=== PATIENT | female | born 1990 | race Caucasian/White ===

== ENCOUNTER 2016-09-23 16:26 | Emergency (ER) | payer OTHER, BC ==
[~2016-09-23] VITALS: Ht 172.7 cm; Wt 139.5 kg
[~2016-09-23 16:26] MED LIST: GLUCOPHAGE500 MG/TAB PO; LOESTRIN 1/20 21DAY
[2016-09-23 16:32] VITALS: TEMP 98.3
[2016-09-23] MEDS ORDERED: FLEXERIL 1010 MG/TAB PO (19:02)
[2016-09-23 19:10] VITALS: BP 138/79; PULSE 86
== END 2016-09-23 19:11 | disposition home or self-care (01) ==
LOC: COL.ER 16:26
DX: M62.830 Muscle spasm of back (principal); V43.52XA Car driver injured in collision with other type car in traffic accident, initial encounter; Y92.410 Unspecified street and highway as the place of occurrence of the external cause; M41.9 Scoliosis, unspecified
CPT/HCPCS: J1885; J2360

== ENCOUNTER 2019-05-02 08:32 | Emergency (ER) | payer BC ==
[~2019-05-02] VITALS: Ht 177.8 cm; Wt 118.2 kg
[~2019-05-02 08:32] MED LIST changes: +BLISOVI 24 FE1 EACH PO; +FLEXERIL 1010 MG/TAB PO; +NORCO 325 MG-51 TAB PO
[2019-05-02 08:39] VITALS: TEMP 97.9
[2019-05-02] MEDS ORDERED: CRANBERRY FRUI425 MG PO (08:51)
[2019-05-02] MEDS ORDERED: GINGER500 MG PO (08:51)
[2019-05-02 09:28] LABS: BASO % 0.3 % (0.0-2.0); EOS # 0.2 (0.0-0.7); EOS % 2.8 % (0-4.0); GRAN # 4.7 (1.4-6.5); GRAN % 65.1 % (42.2-75.2); HEMATOCRIT 40.7 % (37.0-47.0); HEMOGLOBIN 14.1 g/dl (12.5-16.0); LYMPH # 1.9 (1.2-3.4); LYMPH % 25.6 % (20.0-51.0); MEAN CELL VOLUME 94 fl (80.0-100.0); MEAN CORPUSCULAR HEMOGLOBIN 33 pg (27.0-31.0); MEAN CORPUSCULAR HGB CONC 35 g/dl (33.0-37.0); MEAN PLATELET VOLUME 9.4 fl (7.4-10.4); MONO # 0.4 (0.1-0.6); MONO % 5.9 % (1.7-9.3); PLATELET COUNT 185 K/mm3 (130-400); RED BLOOD COUNT 4.34 M/mm3 (4.10-5.30); REDCELL DISTRIBUTION WIDTH-CV 11.9 % (11.5-14.5)
[2019-05-02 09:39] LABS: ALBUMIN 3.9 gm/dL (3.5-5.0); BILIRUBIN,TOTAL 0.5 mg/dL (0.0-1.0); CALCIUM 8.8 mg/dL (8.4-10.2); CREATININE, serum 0.58 (0.52-1.25); POTASSIUM 4.1 mmol/L (3.4-5.0); TOTAL PROTEIN 6.6 gm/dL (6.4-8.2)
[2019-05-02] MEDS ORDERED: PREDNISONE20 MG PO (10:50)
[2019-05-02] MEDS ORDERED: PROAIR HFA0.09 MG/AC IH (11:34)
[2019-05-02 11:45] VITALS: BP 110/60; PULSE 87
== END 2019-05-02 11:47 | disposition home or self-care (01) ==
LOC: COL.ER 08:32
PROVIDERS: Nurse Practitioner
DX: J20.9 Acute bronchitis, unspecified (principal); F17.210 Nicotine dependence, cigarettes, uncomplicated; Z88.0 Allergy status to penicillin; Z88.1 Allergy status to other antibiotic agents
CPT/HCPCS: J1885; J7030; J7512